=== PATIENT | male | born 1975 | race Caucasian/White ===

== ENCOUNTER 2022-09-09 10:23 | Outpatient (CLI) | payer OTHER, SELFPAY | END 2022-09-09 10:24 | disposition home or self-care (01) | PROVIDERS: PCP Family Medicine; Visit Provider Family Medicine | DX: Z00.00 Encounter for general adult medical examination without abnormal findings (principal); R07.9 Chest pain, unspecified; Z13.6 Encounter for screening for cardiovascular disorders | CPT/HCPCS: 80048; 80061 ==

== ENCOUNTER 2022-09-27 12:35 | Outpatient (CLI) | payer OTHER, SELFPAY ==
[2022-09-27] MEDS: PERFLUTREN LIPID MICROSPHERES 2 ML VIAL IV (13:10)
[2022-09-27 13:40] VITALS: BP 143/84; PULSE 86
--- NOTE | 2022-09-27 17:21 | W.PM.STED ---
Stress Test Note Date Date Seen: 09/27/22 Date of test: 09/27/22 Providers Primary care provider: Markie Villalobos Stress test physician: Andrzej Mackay Stress Test Note Stress test ordered: Stress Echo Indication for test: Chest pain Stress test medicine: Definity Results discussion: This very nice gentleman presents the above test after discussion the risks benefits side effects he will like to proceed. Review of the cardiac stress test medical history form is done, preliminary EKG shows the blood pressure 128/78, rhythm is sinus, rate is 56, with no acute ST wave changes, following standard Rachid protocol patient is exercised for 10 minutes 1 seconds, achieved a metabolic equivalent of 11.7 Mets, test is terminated because of fulfillment of protocol, maximum heart rate was 161 which is 110% of the maximum, he had no symptoms during the test, review of the tracing showed no significant ST wave depression, there is no ventricular or atrial arrhythmias, Impression: Negative electrographic portion of stress echo, Follow up suggested: Await echo images these will be read by Cardiology, clinical correlation with these will be needed, patient left this testing facility in excellent condition at baseline
--- NOTE | 2022-09-27 17:26 | W.PM.STED ---
Stress Test Note Date Date Seen: 09/27/22 Date of test: 09/27/22 Providers Primary care provider: Markie Villalobos Stress test physician: Andrzej Mackay Stress Test Note Stress test ordered: Stress Echo Indication for test: Ventricular tachycardia Stress test medicine: Definity Results discussion: This patient presents for a stress echo, definity is use. Pretest EKG shows normal sinus rhythm with a ventricular rate of 94, blood pressure 149/100, EKG shows no acute ST wave changes. Review of the cardiac stress test medical history form is also done, after this, patient agreed to do the test after risks benefits and side effects of this are discussed in detail, following Rachid protocol patient is exercised for 10 minutes 31 seconds, test is terminated because of fulfillment of protocol, metabolic exercise tolerance reach was 12.1. During this test he had no subjective symptoms of chest pain shortness of breath, review of the tracing showed no evidence of ST wave changes suggestive ischemia, there is no dysrhythmias. Impression: Negative electrographic portion of stress echo Follow up suggested: Plan is to await echo images these will be reviewed by Cardiology patient left this testing facility in excellent condition, there were no complications. Clinical correlation will be needed within the review is done.
== END 2022-09-27 12:36 | disposition home or self-care (01) ==
LOC: STRESS 12:37
PROVIDERS: PCP Family Medicine; Visit Provider Family Medicine
DX: I47.20 Ventricular tachycardia, unspecified (principal); R07.9 Chest pain, unspecified
CPT/HCPCS: 93016; 93325; 93351; Q9957

== ENCOUNTER 2023-09-11 04:01 | Emergency (ER) | payer OTHER, SELFPAY ==
[2023-09-11 04:16] VITALS: BP 171/107; PULSE 82; RESP 16; TEMP 36.7; O2SAT 97; BMI 27.3
--- NOTE | 2023-09-11 04:32 | ED_ITS ---
HPI - General Adult General Chief complaint: Skin/Abscess/Foreign Body Stated complaint: chin pain, wound on leg Time Seen by Provider: 09/11/23 04:16 Source: patient Mode of arrival: ambulatory Limitations: no limitations History of Present Illness HPI narrative: 47-year-old male presents the emergency department in the middle of the night for evaluation of a concerning skin lesion on his chin and a matching 1 on his lateral right thigh. These have been present a few days and seem to be a little worse this morning to him. There is no swelling of the lips or tongue, there is no difficulty swallowing, no difficulty breathing. No drainage. No fever. No injury or trauma. Not immunocompromised or on chemotherapy. Has some mild tenderness. Took ibuprofen 400 mg 8 hours ago with no significant change. Past medical history notable for anxiety disorder. Home meds are Lexapro, trazodone and omeprazole. Denies recent surgical history. ROS notable for no other generalized, respiratory, musculoskeletal, HEENT, skin concerns. Related Data Previous Rx's Medication Instructions Recorded omeprazole 20 mg tablet,delayed 20 mg PO QDAY #90 tabs 01/16/23 release trazodone 50 mg tablet 50 - 100 mg (1 - 2 x 50 mg) PO QHS 01/16/23 #30 tabs ciprofloxacin HCl 500 mg tablet 500 mg PO BID #14 tabs 08/15/23 escitalopram oxalate 10 mg tablet 10 mg PO QDAY #90 tabs 08/15/23 (Lexapro) Allergies Allergy/AdvReac Type Severity Reaction Status Date / Time No Known Drug Allergies Allergy Verified 08/15/23 12:35 [facility] Medical History Insomnia ?G47.00 - Insomnia, unspecified (ICD-10) Adjustment disorder with depressed mood ?F43.21 - Adjustment disorder with depressed mood (ICD-10) GERD (gastroesophageal reflux disease) ?K21.9 - Gastro-esophageal reflux disease without esophagitis (ICD-10) Tobacco dependence syndrome ?F17.200 - Nicotine dependence, unspecified, uncomplicated (ICD-10) Seasonal allergic rhinitis ?J30.2 - Other seasonal allergic rhinitis (ICD-10) Obstructive sleep apnea syndrome ?G47.33 - Obstructive sleep apnea (adult) (pediatric) (ICD-10) Bilateral carpal tunnel syndrome ?G56.03 - Carpal tunnel syndrome, bilateral upper limbs (ICD-10) Family History Father Stroke Heart disease KADY (obstructive sleep apnea) Brother KADY (obstructive sleep apnea) Sister KADY (obstructive sleep apnea) Social History Narrative: , smoker, social ETOH, 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[employer] Smoking Status: Current every day smoker Non-prescribed substance use: denies use Little interest or pleasure in doing things: more than half the days Feeling down, depressed, or hopeless: several days Exam Const: Vital Signs, click to edit/add: Vital Signs - 24 hr 09/11/23 04:16 Temperature 98.1 F Pulse Rate [Pulse Oximeter] 82 Respiratory Rate 16 Blood Pressure [Le ft Upper Arm] 171/107 H Pulse Oximetry 97 Oxygen Delivery Me thod Room Air Documenting provider has reviewed patient's vital signs: yes Common normals: no apparent distress General appearance: comfortable HENMT: Common normals: head/scalp atraumatic Head and scalp: atraumatic Mouth: oral and palatal mucosa normal Throat: posterior oropharynx normal Other: Mild honey crusted pustular lesion in small chain on chin near left anterior side. No drainage or areas of fluctuance. No surrounding cellulitis. Does not affect lip. No lesions inside the nose. Eye: Common normals: conjunctivae normal General eye: normal appearance of both eyes Conjunctiva: conjunctiva(e) normal Neck & C-Spine: Common normals: full ROM and no lymphadenopathy Resp: Common normals: normal respiratory effort and clear to auscultation bilaterally Effort & inspection: able to speak in complete sentences Auscultation: clear to auscultation bilaterally Cardio: Common normals: regular rate, regular rhythm, S1 normal heart sound, S2 normal heart sound and no murmurs Rate: regular rate Rhythm: regular rhythm Heart sounds: S1 normal and S2 normal Psych: Insight: fair Judgement: fair Skin: Narrative: And a crusted pustular lesions on chin, 48 mm in size small chain. Similar 8 mm lesion on lateral right mid thigh. 1 cm area surrounding redness on all sides. No fluctuance or drainage. Course Course ED Course: Counseled patient on likely diagnosis of impetigo based on honey crusted cover ing. Denies history of MRSA. Not immunocompromised. Recommended Keflex 1 tablet t.i.d. for a week with topical mupirocin. Typical course of healing discussed. Alarm symptoms reviewed and follow-up if not starting to improve in 48 hours. Vital Signs Vital signs: Initial Vital Signs Temperature 98.1 F 09/11/23 04:16 Temperature Source Temporal Artery Scan 09/11/23 04:16 Pulse Rate 82 09/11/23 04:16 Respiratory Rate 16 09/11/23 04:16 Blood Pressure 171/107 H 09/11/23 04:16 Blood Pressure Mean 128 H 09/11/23 04:16 Blood Pressure Position Sitting 09/11/23 04:16 Pulse Oximetry 97 09/11/23 04:16 Oxygen Delivery Method Room Air 09/11/23 04:16 Vital Signs Temperature 98.1 F 09/11/23 04:16 Pulse Rate 82 09/11/23 04:16 Respiratory Rate 16 09/11/23 04:16 Blood Pressure 171/107 H 09/11/23 04:16 Pulse Oximetry 97 09/11/23 04:16 Oxygen Delivery Method Room Air 09/11/23 04:16 Temperature 98.1 F 09/11/23 04:16 Pulse Rate 82 09/11/23 04:16 Respiratory Rate 16 09/11/23 04:16 Blood Pressure 171/107 H 09/11/23 04:16 Pulse Oximetry 97 09/11/23 04:16 Oxygen Delivery Method Room Air 09/11/23 04:16 Discharge Plan Discharge Clinical Impression: Impetigo Instructions: Impetigo (DC) Additional Instructions: As we discussed, you have a mild bacterial skin infection. I prescribed you an antibiotic to take 3 times daily. He will also apply the ointment that was given here in the emergency department on the chin and lesion on her thigh 3 times daily as well. If you do run out of this 1, it is available [id number]. Things may worsen for the next 24 hours, you should start to see some improvement after 48 hours. If you are not noticing any improvement after 3 days on antibiotics, you should seek re-evaluation. If you have high fever, severe swelling of the face to the point where you have breathing difficulty or swallowing difficulty, you should come back to emergency room. It does not look as though the lesion on the leg would benefit from drainage at this time. No restrictions for work, school or other activities. For pain, you may use ibuprofen 600 mg every 6 hours and/or Tylenol 1000 mg every 6 hours. You may take either medication as soon as you get home. Activity Level: No Restrictions Discharge Diet: Regular Prescriptions: No Action omeprazole 20 mg tablet,delayed release (DR/EC) 20 mg PO QDAY Qty: 90 3RF trazodone 50 mg tablet 50 - 100 mg PO QHS Qty: 30 2RF escitalopram oxalate [Lexapro] 10 mg tablet 10 mg PO QDAY Qty: 90 3RF ciprofloxacin HCl 500 mg tablet 500 mg PO BID Qty: 14 0RF Follow Up/Referrals: Markie Villalobos MD [Primary Care Provider] - Stand Alone Forms: [employer] Info Instructions
[2023-09-11] MEDS: MUPIROCIN OINTMENT 22 GM 1 APPLIC TOPICAL (04:40)
== END 2023-09-11 04:47 | disposition home or self-care (01) ==
LOC: ED 04:30
PROVIDERS: Emergency Provider Family Medicine; PCP Family Medicine
DX: L01.00 Impetigo, unspecified (principal)
CPT/HCPCS: 99283

== ENCOUNTER 2023-09-12 14:45 | Emergency (ER) | payer OTHER, SELFPAY ==
[2023-09-12 14:51] VITALS: BP 161/99; PULSE 73; RESP 18; TEMP 36.7; O2SAT 97; BMI 28.0
--- NOTE | 2023-09-12 15:05 | ED.GENADULT ---
HPI - General Adult General Chief complaint: Ear/Nose/Throat Problem Stated complaint: Swelling in neck, difficulty swallowing Time Seen by Provider: 09/12/23 15:04 History of Present Illness HPI narrative: Pt was seen Monday overnight for skin conditions . Dx with impetigo. Now noticing LEFT sided facial swelling and trouble swallowing. Difficulty opening mouth to eat. Still able to take in liquids. Amorita like he had a fever last night, did not take temp. Feels skin issues are not improved yet either. Started on Keflex. Has taken 5 total doses so far 47-year-old man presenting to the emergency department with concern of increasing pain and difficulty swallowing and difficulty opening his mouth to eat. Was seen a little more than 24 hours ago and diagnosed with impetigo. Initiated on Keflex. Managed to take 5 doses apparently. Had a small tube of Bactroban given to him by the pharmacy but has not been able to afford more as recommended apparently on last visit. He has had some spread of a lesion on his right thigh and a fresh lesion on his left. Chin his swelled. He has had increasing redness and pain at the left jaw and neck area. No fever as did not measure but did feel chilled and hot. Has also been taking ibuprofen and acetaminophen. He is having less concern of pain and more of the discomfort with swallowing and the new neck rash being the reason for visit. small drainage from source. Point of clarification -- the right thigh lesion was the 1st 1. Does ask later whether or not this could be sexually transmitted infection as last year was unfaithful Related Data Previous Rx's Medication Instructions Recorded omeprazole 20 mg tablet,delayed 20 mg PO QDAY #90 tabs 01/16/23 release trazodone 50 mg tablet 50 - 100 mg (1 - 2 x 50 mg) PO QHS 01/16/23 #30 tabs escitalopram oxalate 10 mg tablet 10 mg PO QDAY #90 tabs 08/15/23 (Lexapro) mupirocin 2 % topical ointment 1 applic topical BID #15 grams 09/12/23 Allergies Allergy/AdvReac Type Severity Reaction Status Date / Time No Known Drug Allergies Allergy Verified 09/12/23 15:57 Review of Systems Status of ROS: Reports: 6 or more systems reviewed and unremarkable except as noted in History and below [facility] Medical History Insomnia ?G47.00 - Insomnia, unspecified (ICD-10) Adjustment disorder with depressed mood ?F43.21 - Adjustment disorder with depressed mood (ICD-10) GERD (gastroesophageal reflux disease) ?K21.9 - Gastro-esophageal reflux disease without esophagitis (ICD-10) Tobacco dependence syndrome ?F17.200 - Nicotine dependence, unspecified, uncomplicated (ICD-10) Seasonal allergic rhinitis ?J30.2 - Other seasonal allergic rhinitis (ICD-10) Obstructive sleep apnea syndrome ?G47.33 - Obstructive sleep apnea (adult) (pediatric) (ICD-10) Bilateral carpal tunnel syndrome ?G56.03 - Carpal tunnel syndrome, bilateral upper limbs (ICD-10) Family History Father Stroke Heart disease KADY (obstructive sleep apnea) Brother KADY (obstructive sleep apnea) Sister KADY (obstructive sleep apnea) Social History Narrative: , smoker, social ETOH, 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 Seems little uncomfortable. There is moderate swelling of the left side of the chin with central erythema. Calor is well here and suggestive of possible abscess formation. He is also mildly swollen and erythematous down along the jaw toward the neck as well. There is not significant induration here and with mild calor. Is demonstrating trismus. Oropharynx looks unremarkable though. I do not hear any stridor. Lungs appear to be clear. Heart is in regular rate and rhythm. Otherwise on the skin there is a and nearly 3 in maximal diameter oval at the right thigh with some just shy of 2 cm central eroding tissue. There is calor here. Looks like might be a point of drainage. A some other eruptions smaller on the left thigh as well. Const: Vital Signs, click to edit/add: Vital Signs - 24 hr 09/12/23 14:51 Temperature 98.1 F Pulse Rate [Pulse Oximeter] 73 Respiratory Rate 18 Blood Pressure [Ri ght Upper Arm] 161/99 H Pulse Oximetry 97 Oxygen Delivery Me thod Room Air Documenting provider has reviewed patient's vital signs: yes Course Vital Signs Vital signs: Initial Vital Signs Temperature 98.1 F 09/12/23 14:51 Temperature Source Temporal Artery Scan 09/12/23 14:51 Pulse Rate 73 09/12/23 14:51 Pulse Rhythm Regular 09/12/23 14:51 Pulse Strength 3+ Normal 09/12/23 14:51 Respiratory Rate 18 09/12/23 14:51 Blood Pressure 161/99 H 09/12/23 14:51 Blood Pressure Mean 119 H 09/12/23 14:51 Blood Pressure Position Sitting 09/12/23 14:51 Pulse Oximetry 97 09/12/23 14:51 Oxygen Delivery Method Room Air 09/12/23 14:51 Vital Signs Temperature 98.1 F 09/12/23 14:51 Pulse Rate 73 09/12/23 14:51 Respiratory Rate 18 09/12/23 14:51 Blood Pressure 161/99 H 09/12/23 14:51 Pulse Oximetry 97 09/12/23 14:51 Oxygen Delivery Method Room Air 09/12/23 14:51 Temperature 98.1 F 09/12/23 14:51 Pulse Rate 73 09/12/23 14:51 Respiratory Rate 18 09/12/23 14:51 Blood Pressure 161/99 H 09/12/23 14:51 Pulse Oximetry 97 09/12/23 14:51 Oxygen Delivery Method Room Air 09/12/23 14:51 Medications Administered Medications: Discontinued Medications Generic Name Dose Route Start Last Admin Trade Name Freq PRN Reason Stop Dose Admin Sodium Chloride 1,000 mls @ 1,000 mls/hr 09/12/23 15:22 09/12/23 16:30 0.9 % Sodium Chloride 1000 Ml IV 09/12/23 16:21 Infused .Q1H ONE Infusion Ceftriaxone Sodium 1 gm/ 100 mls @ 200 mls/hr 09/12/23 17:31 09/12/23 18:15 Sodium Chloride IVPB 09/12/23 17:32 Infused ONCE ONE Infusion Ketorolac Tromethamine 30 mg 09/12/23 18:05 09/12/23 18:19 Ketorolac 30 Mg/Ml Inj IVP 09/12/23 18:06 30 mg ONCE ONE Administration Medical Decision Making MDM Narrative Medical decision making narrative: I would presume abscess or possible of phlegmonous eruption in the left chin area. My concern would be extension into the neck. I think will have to image here to make sure. Pending this result. Otherwise will draw blood cultures. IV fluids. Does not feel needs anything for pain or antiemetic at this time. Given the lesions as noted on the thigh would wonder more about a staph organism like MRSA. IV placed. Normal saline. Soft tissue neck was requested. On my read I can see what looks like a small abscess around a cm or so at the left chin. I do not see fluid collection or marked induration elsewhere. I did return to anesthetize the chin with bupivacaine. Anticipating drainage. White count is little elevated at 13,600. CRP notably elevated Radiology over-read as below Study:?CT-ST Neck W/ 95CC ISOVUE 370-09/12/2023 3:58:26 PM Ordering Physician:MYLES Final Report: INDICATION: Chin abscess. Difficulty swallowing. TECHNIQUE: CT of the neck with 95 cc Isovue 370 iodinated contrast agent. Coronal and sagittal reconstructions are included. COMPARISON: None. FINDINGS: There is soft tissue thickening and fat stranding within the left-sided submental soft tissues, with central area of low density compatible with phlegmon/early abscess. It measures approximately 6 x 11 millimeters in axial plane. No periapical or periodontal dental disease is in close proximity, although there are scattered sites of dental caries. No extension of infection into the floor of mouth region. Several prominent upper cervical lymph nodes, likely reactive in etiology. The oral cavity, nasopharyngeal, oropharyngeal and hypopharyngeal spaces are normal. The supraglottic, glottic and infraglottic larynx are normal. The airway including the trachea is normal and is patent. The parotid glands, submandibular and sublingual glands are normal in appearance. The thyroid gland is normal in appearance. The vascular structures opacify normally with contrast material. No suspicious lytic or blastic osseous lesions. Posterior vertebral body wedging at C3 and C4. Slight cervical kyphosis. Mild disc degeneration C5-6 and C6-7. Visualized paranasal sinuses and mastoid air cells are clear. Visualized orbital and intracranial contents are normal. Supraclavicular regions, mediastinum and soft tissues of the imaged chest wall are normal. Visualized portions of the upper lungs are clear. IMPRESSION: 1. Findings compatible with left-sided submental cellulitis with small area of central phlegmon/abscess. No visible dental source. No extension of infection into the floor of mouth region. No evidence of airway compromise. Discussed findings and case with ear nose and throat provider. Did recommend proceeding with drainage. Further anesthetized and then incised with scalpel. Opened a little more with curved mosquito. I and D of 1 mL of purulent material was collected. Some had already collected after initial cleansing the chin that was sent for wound culture. Bactroban and dressing applied. Reexamined right thigh. There is more fluid in this lesion than I thought. Anesthetized this area with Betadine and performed I&D excised 1 1/2 mL from already oozing lesion. Bactroban and gauze dressing applied Has been given 1 g of Rocephin. Ketorolac as well for pain. Will need more pain medication he thinks on departure. Considering antibiotics though I do think that could continue with Keflex for strep coverage but will add Bactrim for staph/MRSA coverage. Wound culture is pending. Did discuss with laboratory evaluation for gonococcus organism from culture given patient question. Has not had any joint involvement or other indication of disseminated gonococcal infection. See patient discharge plan for further discussion Lab Data Lab results reviewed: Yes I reviewed the patient's lab results Labs: Lab Results 09/12/23 09/12/23 Range/Units 15:00 15:41 WBC 13.67 H (4.50-11.00) K/uL RBC 4.13 L (4.30-5.90) m/uL Hgb 13.4 L (13.5-17.5) gm/dL Hct 39.0 (37.0-53.0) % MCV 94 (80-100) fL MCH 32 (26-34) pg MCHC 34 (32-36) gm/dL RDW Coeff of Toña 13.4 (11.5-15.5) % Plt Count 199 (140-440) K/uL Neut % (Auto) 81.1 H (42.0-72.0) % Lymph % (Auto) 10.7 L (20-44) % [place] % (Auto) 6.4 (0.0-11.0) % Eos % (Auto) 1.0 (0.0-7.0) % Baso % (Auto) 0.1 (0.0-3.0) % Neut # (Auto) 11.10 H (1.7-7.0) K/uL Lymph # (Auto) 1.50 (0.90-2.90) K/uL [place] # (Auto) 0.90 (0.00-0.90) K/UL Eos # (Auto) 0.10 (0.00-0.50) K/uL Baso # (Auto) 0.00 (0.00-0.30) K/uL Abs Immat Gran (auto) 0.10 (0.00-0.30) K/uL Imm/Tot Granulo (auto) 0.7 % Sodium 137 (135-149) mmol/L Potassium 3.9 (3.6-5.1) mmol/L Chloride 106 (96-114) mmol/L Carbon Dioxide 26 (20-32) mmol/L Anion Gap 5 L (7-15) mEq/L BUN 18 (5-24) mg/dL Creatinine 1.0 (0.5-1.5) mg/dL Estimated Creat Clear 92.26 Estimated GFR 92 ml/min Glucose 95 (60-115) mg/dL Calcium 9.4 (8.4-10.6) mg/dL C-Reactive Protein 8.4 H (0.5-1.0) mg/dL SARS-CoV-2 (PCR) Negative SARS-CoV-2 (Negative) Influenza Type A (PCR) Negative PCR FLU A (Negative) Influenza Type B (PCR) Negative PCR FLU B (Negative) RSV (PCR) Negative PCR RSV (Negative) Group A Strep DNA NOT DETECTED (Not Detectd) Discharge Plan Discharge Clinical Impression: Abscess, Cellulitis Patient Disposition: Home, Self-Care Condition: Stable Additional Instructions: Stay well-hydrated. Can take up to 800 mg of ibuprofen up to 1000 mg of acetaminophen per dose. These can be combined. Keep in mind that each tablet of [place] from [facility] contains 325 mg of acetaminophen. Change dressings at least once daily. Use mupirocin on fluffed up gauze bandages transitioning to Band-Aids. I would think 1 week of topical antibiotic ointment/mupirocin should be plenty. Sending in another prescription to pharmacy Wound culture is pending that may prompt a call from us to the change antibiotics if coverage in question. Be seen for escalating/persistent fever, repeated vomiting, spreading redness after 2 days or significant and rapid increase in swelling and pain around current sores. For now continue with current course of cephalexin. Will add Bactrim to this. Sending a prescription for mupirocin. Bactrim and [place] from [facility] Prescriptions: New mupirocin 2 % ointment 1 applic topical BID Qty: 15 1RF No Action omeprazole 20 mg tablet,delayed release (DR/EC) 20 mg PO QDAY Qty: 90 3RF trazodone 50 mg tablet 50 - 100 mg PO QHS Qty: 30 2RF escitalopram oxalate [Lexapro] 10 mg tablet 10 mg PO QDAY Qty: 90 3RF Follow Up/Referrals: Markie Villalobos MD [Primary Care Provider] - Stand Alone Forms: [employer] Info Instructions
--- NOTE | 2023-09-12 15:22 | CT_ITS ---
Patient: ROMIE ALVARADO Facility:?[facility] Patient ID:?[id number] Site Patient ID:?[id number]. Site :?[id number] Study:?CT-ST Neck W/ 95CC ISOVUE 370-09/12/2023 3:58:26 PM Ordering Physician:MYLES Final Report: INDICATION: Chin abscess. Difficulty swallowing. TECHNIQUE: CT of the neck with 95 cc Isovue 370 iodinated contrast agent. Coronal and sagittal reconstructions are included. COMPARISON: None. FINDINGS: There is soft tissue thickening and fat stranding within the left-sided submental soft tissues, with central area of low density compatible with phlegmon/early abscess. It measures approximately 6 x 11 millimeters in axial plane. No periapical or periodontal dental disease is in close proximity, although there are scattered sites of dental caries. No extension of infection into the floor of mouth region. Several prominent upper cervical lymph nodes, likely reactive in etiology. The oral cavity, nasopharyngeal, oropharyngeal and hypopharyngeal spaces are normal. The supraglottic, glottic and infraglottic larynx are normal. The airway including the trachea is normal and is patent. The parotid glands, submandibular and sublingual glands are normal in appearance. The thyroid gland is normal in appearance. The vascular structures opacify normally with contrast material. No suspicious lytic or blastic osseous lesions. Posterior vertebral body wedging at C3 and C4. Slight cervical kyphosis. Mild disc degeneration C5-6 and C6-7. Visualized paranasal sinuses and mastoid air cells are clear. Visualized orbital and intracranial contents are normal. Supraclavicular regions, mediastinum and soft tissues of the imaged chest wall are normal. Visualized portions of the upper lungs are clear. IMPRESSION: 1. Findings compatible with left-sided submental cellulitis with small area of central phlegmon/abscess. No visible dental source. No extension of infection into the floor of mouth region. No evidence of airway compromise. Please note that all CT scans at this facility use dose modulation, iterative reconstruction, and/or weight-based dosing when appropriate to reduce radiation dose to as low as reasonably achievable. Dictated by Ahmet Will MD @ 09/12/2023 4:15:26 PM Signed by:?Ahmet Will MD @09/12/2023 4:15:26 PM (Electronic Signature)
[2023-09-12] MEDS: 0.9 % SODIUM CHLORIDE 1000 ml 1,000 ML IV (15:30)
[2023-09-12 15:44] LABS: Strep A DNA Probe* NOT DETECTED (Not Detectd)
[2023-09-12 15:55] LABS: Basophils Percent Auto 0.1 % (0.0-3.0); Hemoglobin* 13.4 gm/dL (13.5-17.5); Immature Granulocytes Pct Auto 0.7 %; Lymphocytes Percent Auto 10.7 % (20-44); Mean Corpuscular HGB Conc 34 gm/dL (32-36); Mean Corpuscular Hemoglobin 32 pg (26-34); Mean Corpuscular Volume 94 fL (80-100); Monocytes Percent Auto 6.4 % (0.0-11.0); Neutrophils Percent Auto 81.1 % (42.0-72.0); Platelet Count* 199 K/uL (140-440); RDW Coefficient of Variation % 13.4 % (11.5-15.5); Red Blood Count 4.13 m/uL (4.30-5.90); White Blood Count* 13.67 K/uL (4.50-11.00)
[2023-09-12 15:56] LABS: PCR FLU A Negative PCR FLU A (Negative); PCR FLU B Negative PCR FLU B (Negative); PCR RSV Negative PCR RSV (Negative); SARS PCR* Negative SARS-CoV-2 (Negative)
[2023-09-12 16:05] LABS: Slide Review Reflex No
[2023-09-12 16:06] LABS: Chloride* 106 mmol/L (96-114); Sodium* 137 mmol/L (135-149)
[2023-09-12 16:07] LABS: Potassium* 3.9 mmol/L (3.6-5.1)
[2023-09-12 16:09] LABS: Est. Creatinine Clearance* 92.26; Estimated Glomerular Filt Rate 92 ml/min
[2023-09-12 16:10] LABS: Anion Gap 5 mEq/L (7-15); Blood Urea Nitrogen* 18 mg/dL (5-24); Calcium* 9.4 mg/dL (8.4-10.6); Carbon Dioxide* 26 mmol/L (20-32); Glucose* 95 mg/dL (60-115)
[2023-09-12 16:13] LABS: C Reactive Protein* 8.4 mg/dL (0.5-1.0)
[2023-09-12] MEDS: cefTRIAXone 1 GM in 0.9 % SODIUM CHLORIDE Mini-bag 100 ML IVPB (17:45)
[2023-09-12] MEDS: KETOROLAC 30 MG/ML inj IVP (18:19)
== END 2023-09-12 18:54 | disposition home or self-care (01) ==
PROVIDERS: Emergency Provider Family Medicine; PCP Family Medicine
DX: L02.01 Cutaneous abscess of face (principal); L02.416 Cutaneous abscess of left lower limb; L02.415 Cutaneous abscess of right lower limb; L03.211 Cellulitis of face
CPT/HCPCS: 10061; 36415; 70491; 80048; 85025; 86140; 87040; 87070; 87186; 87631; 87651; 96365; 96375; 99284; 99285; J0696; J1885; J7030; Q9967

== ENCOUNTER 2024-06-20 08:52 | Outpatient (CLI) | payer OTHER, SELFPAY | END 2024-06-20 08:53 | disposition home or self-care (01) | PROVIDERS: PCP Family Medicine; Visit Provider Family Medicine | DX: Z13.220 Encounter for screening for lipoid disorders (principal); Z12.5 Encounter for screening for malignant neoplasm of prostate | CPT/HCPCS: 80061; G0103 ==

== ENCOUNTER 2024-12-24 10:31 | Outpatient (CLI) | payer OTHER, SELFPAY | END 2024-12-24 10:32 | disposition home or self-care (01) | LOC: FBOREF 10:31 | PROVIDERS: PCP Family Medicine; Visit Provider Family Medicine | DX: I10 Essential (primary) hypertension (principal) | CPT/HCPCS: 80048 ==